=== PATIENT | female | born 1980 | race Caucasian/White ===

== ENCOUNTER → 2023-06-17 10:33 | Outpatient (BNV) | payer OTHER, SELFPAY | PROVIDERS: Visit Provider Psychiatry & Neurology Psychiatry | DX: F32.9 Major depressive disorder, single episode, unspecified (principal) | CPT/HCPCS: 90792; 99212; 99213 ==

== ENCOUNTER 2023-07-01 08:00 | Outpatient (RCR) | payer OTHER, SELFPAY ==
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
[2023-06-20 11:49] VITALS: BMI 23.9
[2023-06-20 11:50] VITALS: BP 90/60; PULSE 76; TEMP 36.9
--- NOTE | 2023-06-20 13:20 | PC.ADMIT ---
Patient is a 43 year old female who was referred to [facility] by [facility] crisis who came to Joshua's house per her request d/t increased depression, reports her children were recently taken away from her with DCF involvement, and she has a long history of ETOH use. Patient reports she had a mental breakdown the end of March and was hospitalized for the first time at [facility]. She reports at the time she was overwhelmed, selling her home and did not have another place to live. She reports cutting herself on her R thigh which she has not done in many years d/t the stress. Patient reports she has been drinking ETOH daily from 6-8 Truly seltzers for the past 9 years. Patient is alert and oriented x4. Calm and cooperative. She denied SI or thoughts to harm herself. She was given a copy of her safety plan and I reviewed this with her. Medications reconciled with patient and pharmacy. Pharmacy stated Gabapentin was discontinued as patient is now taking Lyrica. Patient stated she is continuing to take Gabapentin 400 mg daily as it is hard for her to stop taking as she was previously was taking a high dose of Gabapentin. Medication education provided. Patient showed this expert medical writer her L lower leg. She reports she got bitten by a mosquito in January. She stated she has been picking at the area, digging it out and putting antibiotic ointment on it. The area looks reddened about the size of a quarter and lower leg with edema. I advised her to call her PCP to make an appointment to f/u as the area looks infected. She stated she would. Reports AKIAK bilateral ears, stated hearing aids do not help
--- NOTE | 2023-06-21 14:15 | PC.NURSE ---
Joshua told staff that DCF has been in contact and her children can no longer stay with her friend and now has to find emergency housing. Staff gave her a list of shelters and housing. She stated she has to leave the program early as a result. She also told staff earlier that she has an appointment with her PCP to f/u with the edematous reddened area on her lower left leg with her PCP on Tuesday06/22/24 thus will not be able to attend PHP on that day.
--- NOTE | 2023-06-23 13:12 | PC.NURSE ---
Joshua stated she saw her PCP and was given antibiotics for the infection on her leg and she has upcoming tests regarding edema including ultrasound of her leg.
--- NOTE | 2023-06-23 15:16 | PC.NURSE ---
Met with Joshua to discuss her after care plan. We were able to contact [facility] , and their [facility] program, [phone]. We spoke with Zohra (program roustabout crew leader) and he was able to send over a referral form. Additionally, Joshua inquired about therapeutic services for parents and their children regarding social media use, Joshua disclosed that her daughter has been inappropriate on her accounts... I don't really know anything about how those work. I would really like someone to talk too about it so I can understand. Joshua was provided information on this and a referral was sent to the [employer]. Joshua was informed that she would be responsible for following up on this referral.
--- NOTE | 2023-06-24 12:14 | HO.PHPPROGNO ---
Subjective Subjective Date of Service: 06/24/23 Reason For Visit: depression Interim History: At Joshua is seen in follow-up. She is doing very well in the program and talked about the various ways that she is finding it helpful. She is able to share her own feelings and position and also learned from other people's experiences and suggestions. Continues on her current medications which were reviewed. No complaints or side effects. No SI. No changes were made today Review of Systems Review of Systems Yes all other systems are reviewed and are negative Mental Status Exam Mental Status Exam Narrative: In today's visit she is alert, oriented and pleasant. Normal speech. Good eye contact. Affect is appropriate and varied. No signs of psychosis. Cognitively she is grossly intact. Thought processes are circumstantial and needed to be interrupted. No active suicidal or homicidal ideations. No SI on inquiry. Judgment is intact Diagnostics Vital Signs (24Hr): BMI result Body Mass Index 23.9 Assessment & Plan Assessment & Plan (1) Major depression: Status: Acute Code(s): F32.9 - Major depressive disorder, single episode, unspecified Plan Continue current regimen and continue partial hospital program Patient educated on: medication risk/benefits Certification I certify that partial hospital treatment is medically necessary due to the symptoms and problems resulting from the patient's mental illness and the failure to treat the patient at the partial hospital level of care would likely result in the patient requiring inpatient psychiatric care which could not be prevented at a less intensive level of care. Total time managing care of this patient today ____ minutes. Discharge Plan Discharge Attending provider: Broderick Mooney Medications: New naltrexone 50 mg tablet 50 mg PO DAILY Qty: 30 0RF No Action buspirone 5 mg tablet 5 mg PO BID prazosin 1 mg capsule 2 mg PO BEDTIME lisinopril 20 mg tablet 30 mg PO DAILY Rx Instructions: Take one and a half tabs daily omeprazole 40 mg capsule,delayed release(DR/EC) 40 mg PO DAILY nicotine (polacrilex) 4 mg Gum 4 mg BUCCAL Q2H topiramate 100 mg tablet 200 mg PO BEDTIME lamotrigine 100 mg tablet 100 mg PO BEDTIME escitalopram oxalate 20 mg tablet 30 mg PO DAILY Rx Instructions: Take one and a half tabs daily. pregabalin 150 mg capsule PO
--- NOTE | 2023-06-29 08:19 | HO.PHP ---
the clients case was reviewed and opened in treatment team
--- NOTE | 2023-06-29 11:01 | HO.PHP ---
I called and left a message with the clients therapist Jersey MARINELLI re clients progress in PHP and planned discharge next week.
--- NOTE | 2023-06-30 12:31 | HO.PHP ---
Referred Joshua to [facility], [facility], for therapy
--- NOTE | 2023-06-30 13:53 | HO.PHPPROGNO ---
Subjective Subjective Date of Service: 06/30/23 Reason For Visit: depression Interim History: Joshua is seen in follow-up/discharge. She talked about the specific areas that the program was very helpful to her. She does have outpatient providers that she will connect back up to again. Current medications were individually reviewed and maintained. She is good with her supply and no prescriptions needed to be sent in. No SI. No changes were made Medication Compliance: Yes Side effects from medications: No Attending Groups: Yes Review of Systems Review of Systems Yes all other systems are reviewed and are negative Mental Status Exam Mental Status Exam Narrative: In today's visit she is alert, oriented and pleasant. Normal speech. Good eye contact. Affect is appropriate and varied. No signs of psychosis. Cognitively she is grossly intact. Thought processes are circumstantial and needed to be interrupted. No active suicidal or homicidal ideations. No SI on inquiry. Judgment is intact Diagnostics Vital Signs (24Hr): BMI result Body Mass Index 23.9 Assessment & Plan Assessment & Plan (1) Major depression: Status: Acute Code(s): F32.9 - Major depressive disorder, single episode, unspecified Plan She will be discharged tomorrow and will reconnect with her outpatient providers. No new prescriptions were sent in and she has enough supply. Patient educated on: diagnosis and medication risk/benefits Certification I certify that partial hospital treatment is medically necessary due to the symptoms and problems resulting from the patient's mental illness and the failure to treat the patient at the partial hospital level of care would likely result in the patient requiring inpatient psychiatric care which could not be prevented at a less intensive level of care. Total time managing care of this patient today ____ minutes. Discharge Plan Discharge Attending provider: Broderick Mooney Medications: New naltrexone 50 mg tablet 50 mg PO DAILY Qty: 30 0RF No Action buspirone 5 mg tablet 5 mg PO BID prazosin 1 mg capsule 2 mg PO BEDTIME lisinopril 20 mg tablet 30 mg PO DAILY Rx Instructions: Take one and a half tabs daily omeprazole 40 mg capsule,delayed release(DR/EC) 40 mg PO DAILY nicotine (polacrilex) 4 mg Gum 4 mg BUCCAL Q2H topiramate 100 mg tablet 200 mg PO BEDTIME lamotrigine 100 mg tablet 100 mg PO BEDTIME escitalopram oxalate 20 mg tablet 30 mg PO DAILY Rx Instructions: Take one and a half tabs daily. pregabalin 150 mg capsule PO
--- NOTE | 2023-06-30 15:18 | HO.PHP ---
Met with Joshua today to go over her upcoming D/C and to discuss her referrals for therapy. She informed this business writer that [facility].
--- NOTE | 2023-07-01 13:11 | PC.NURSE ---
Patient discharged from [facility] on 07/01/23. Discharge routine. Patient discharged to out patient providers. Patient reports he is ready fir discharge, denies HI/SI with no plan, no intent. Patient met with Dr Enrique per her request for medication management. Discharge plan including discharge medications reviewed with patient who verbalized understanding. Ciopy of discharge medications given to patient. Copy of discharge meds faxed to out patient provider.
--- NOTE | 2023-07-01 14:02 | HO.PHPPROGNO ---
Subjective Subjective Date of Service: 07/01/23 Reason For Visit: depression, alcohol dep Interim History: Patient requesting to be seen by provider, was looking to have something for anxiety. Had inquired about Ativan to staff. Patient seen, chart reviewed. Its been just so bad with my ptsd this past week Patient reviewed recent events in detail. She also reviewed treatment here at [facility] and feels it has been helpful. She has been staying with a friend this past week and the experience has been traumatizing , has no intention to further maintain relationsip with friend. She has been experiencing worsening ptsd symptoms this week, poor sleep, panic due to interpersonal stressors and admits she had taken the last pill of a hydroxyzine script from some time ago, which didint help much. Fortunately she is leaving this situation and is allowed to return home to family today. I suspect this will be a change for the positive, and given her admission to [facility] for alcohol abuse, and treatment for dependence, and legal involvement, and that she is slated to be discharged shortly, it would not be prudent to start a medication. I discussed in detail the particular risks associated with benzodiazepine use, particularly in those with alcohol addiction, and recommend that it would be best to discuss treatament options for her anxietyw ith her outpatient provider. Patient expressed understanding and will followup with community providers. Review of Systems Acute medical concerns: No Mental Status Exam Mental Status Exam Patient Appearance: Well Grooomed Patient Orientation: Person, Place, Time and Situation Level of Consciousness: Awake and Alert Patient Behavior: Appropriate, Talkative and Anxious Mood Description: Anxious Affect Description: Constricted (bright, moments of lability but controlled and congruent to mood) and Anxious Patient Cognition Impaired: No Ability to Follow Directions: Good Speech Pattern: Clear (mostly but mild speech impediment d/t hearing loss) and Coherent Memory Description: Intact Hallucinations: None Delusions: Not Present Thought Content: positive for Intact, positive for Obsessional Thoughts, positive for Circumstantial and positive for Goal Oriented Abnormal Motor Activity Signs and Symptoms: Muscle Rigidity Judgement: Fair Judgement and Insight: insight intact Diagnostics Vital Signs (24Hr): BMI result Body Mass Index 23.9 Assessment & Plan Assessment & Plan (1) Major depression: Status: Acute Code(s): F32.9 - Major depressive disorder, single episode, unspecified (2) Alcohol dependence: Status: Acute Code(s): F10.20 - Alcohol dependence, uncomplicated Plan no change to treatment plan or dispo patient is being d/c today was seen by previous provider for discharge - new medication (naltrexone 50 mg) was sent to pharmacy pt to follow up with providers in [facility] Certification I certify that partial hospital treatment is medically necessary due to the symptoms and problems resulting from the patient's mental illness and the failure to treat the patient at the partial hospital level of care would likely result in the patient requiring inpatient psychiatric care which could not be prevented at a less intensive level of care. Total time managing care of this patient today _30___ minutes. Discharge Plan Discharge Attending provider: Uma Enrique Additional Instructions: Joshua has an intake appointment for therapy at the [facility] with Danni on June, at 4:15 pm, [phone] Joshua will continue her medication management with: Italia Parikh MD [facility], [phone] Additionally, Joshua noted that she has a Follow up appointment w/ her current therapist, Jersey Roche [facility] on June, at 3pm. Medications: New naltrexone 50 mg tablet 50 mg PO DAILY Qty: 30 0RF No Action buspirone 5 mg tablet 5 mg PO BID prazosin 1 mg capsule 2 mg PO BEDTIME lisinopril 20 mg tablet 30 mg PO DAILY Rx Instructions: Take one and a half tabs daily omeprazole 40 mg capsule,delayed release(DR/EC) 40 mg PO DAILY nicotine (polacrilex) 4 mg Gum 4 mg BUCCAL Q2H topiramate 100 mg tablet 200 mg PO BEDTIME lamotrigine 100 mg tablet 100 mg PO BEDTIME escitalopram oxalate 20 mg tablet 30 mg PO DAILY Rx Instructions: Take one and a half tabs daily. pregabalin 150 mg capsule PO Stand Alone Forms: Patient Portal Discharge page Patient Education: Depression (DC), Abuse of Alcohol (DC)
--- NOTE | 2023-07-01 14:06 | PC.NURSE ---
Patient called and informed staff that she could not make it to PHP till later in morning. Patient cannot attend PHP on 07/04/23 due to having several appointments. Patient is able and willing to start PCP on 07/05/23. [facility] staff notified of change in admission date.
== END 2023-07-01 23:59 | disposition home or self-care (01) ==
LOC: HO.PHPA 08:00
PROVIDERS: Visit Provider Psychiatry & Neurology Psychiatry
DX: F32.9 Major depressive disorder, single episode, unspecified (principal); F10.20 Alcohol dependence, uncomplicated; Z79.899 Other long term (current) drug therapy
CPT/HCPCS: 90791; 90853; 99212